=== PATIENT | male | born 1985 | race Caucasian/White ===

== ENCOUNTER 2017-07-30 | Day surgery (SDC) | END 2017-07-30 14:15 | disposition home or self-care (01) ==

== ENCOUNTER → 2017-07-30 | Outpatient (CLI) | END | disposition home or self-care (01) ==

== ENCOUNTER 2017-08-06 13:19 | Day surgery (SDC) | payer OTHER ==
[~2017-08-06] VITALS: Ht 190.5 cm; Wt 123.6 kg
[~2017-08-06 13:19] MED LIST: 100CC Multi-Ad1 EACH; ALBU90OI; ALBU90OI INH; ALBU90OI6; ALBU90OI6 INH; ALBU90OI61; ALBU90OI61 INH; AZIT250 PO; CETI5 PO; CHLO500 PO; CLON1 PO; CODBUTACEC PO; CYCL10; CYCL10 PO; DEXL60CA3; DIPATR PO; DOXY100 PO; DULO60 PO; ESOM20 PO; Excedrin Extra1 EACH; FIORINAL-COD 31 EACH; FLUT.05NI; FLUT110OIA IH; FLUT44OIA; FLUT44OIA IH; Flovent 220 Ora12 GM; GABA600 PO; GUAI600T33 PO; IBUP800 PO; LIDO5TO TOP; LORA10ER; MELO7.5 PO; METPRE4DP PO; MONT10T; NAPR500; NAPR500 PO; NAPR550 PO; NORT25 PO; Naprosyn500 MG PO; Nexium40 MG; OMEP10ER PO; OMEP20ER PO; ONDA4; PRED10 PO; PROM25 PO; Prilosec Otc20 MG PO; RANI150; RANI150 PO; RXTRAM50 PO; Robaxin500 MG PO; SUCR1 PO; SULTRIDS PO; TRAM50 PO; TRAZ100 PO; TRIAOI; Ultram50 MG PO; ZYRTEC10 M2; Zofran4 MG PO
[2017-08-06] MEDS ORDERED: HEARTBURN RELI150 M1 PO (14:07)
== END 2017-08-06 17:29 | disposition home or self-care (01) ==
LOC: ORSCSDS 13:19
PROVIDERS: Orthopaedic Surgery
PROC: 0SQC4ZZ Repair Right Knee Joint, Percutaneous Endoscopic Approach (ICD-10-PCS; principal; 2017-08-06 15:00)
DX: S83.281A Other tear of lateral meniscus, current injury, right knee, initial encounter (principal); J45.909 Unspecified asthma, uncomplicated; I10 Essential (primary) hypertension; E66.01 Morbid (severe) obesity due to excess calories; Z68.34 Body mass index [BMI] 34.0-34.9, adult; Z79.899 Other long term (current) drug therapy
CPT/HCPCS: C1713; J0171; J2250; J2795; J3010; J3370; J7120

== ENCOUNTER → 2017-09-02 | Outpatient (CLI) | payer OTHER ==
[~2017-09-02] MED LIST changes: +ANTIBIOTIC; +HEARTBURN RELI150 M1 PO; +Omeprazole20 M1
[2017-09-02 13:25] LABS: BASOPHILS ABSOLUTE AUTO 0.03 K/mm3 (0.00-0.23); BASOPHILS PERCENT AUTO 1 % (0-2); EOSINOPHILS ABSOLUTE AUTO 0.13 K/mm3 (0.00-0.68); EOSINOPHILS PERCENT AUTO 2 % (0-6); Hematocrit 39.9 % (37.0-53.0); IMMATURE GRAN ABSOLUTE AUTO 0.02 K/mm3 (0.00-0.10); IMMATURE GRAN PERCENT AUTO 0 % (0-1); LYMPHOCYTES PERCENT AUTO 26 % (21-46); MONOCYTES ABSOLUTE AUTO 0.48 K/mm3 (0.16-1.47); MONOCYTES PERCENT AUTO 8 % (4-13); Mean Corpuscular HGB 27.7 pg (26.0-34.0); Mean Corpuscular HGB Conc 32.6 g/dL (31.5-36.5); Mean Corpuscular Volume 85 fL (80-100); Mean Platelet Volume 9.6 fL (9.1-12.4); NEUTROPHILS ABSOLUTE AUTO 3.96 K/mm3 (1.96-9.15); NEUTROPHILS PERCENT AUTO 64 % (41-73); Platelet Count 222 K/mm3 (150-400); RDW Coefficient Variation 13.4 % (11.7-14.2); RDW Standard Deviation 41.5 fL (35.1-46.3); White Blood Cell Count 6.22 K/mm3 (4.00-11.30)
[2017-09-02 13:40] LABS: Anion Gap 8 mmol/L (6-16); Blood Urea Nitrogen 7 mg/dL (8-24); Bun/Creatinine Ratio 7.6 (12.0-20.0); CO2, Blood 28 mmol/L (21-32); Calcium, Blood 9.2 mg/dL (8.5-10.1); Chloride, Blood 107 mmol/L (98-108); Creatinine, Blood 0.92 mg/dL (0.60-1.20); Glomerular Filtration Rate >60 (60-); Glucose, Blood 113 mg/dL (70-99); Potassium, Blood 3.7 mmol/L (3.5-5.5); Sodium, Blood 143 mmol/L (136-145); Troponin I <0.017 ng/mL (0.000-0.040)
== END ==
LOC: LAB EV 13:21 → LAB SHORT 13:21
PROVIDERS: Family Medicine
DX: R07.89 Other chest pain (principal)
CPT/HCPCS: 80048; 84484; 85025; 85379

== ENCOUNTER 2018-02-27 18:50 | Emergency (ER) | payer OTHER ==
[~2018-02-27] VITALS: Ht 190.5 cm; Wt 117.9 kg
[~2018-02-27 18:50] MED LIST changes: +Brethine2.5 MG
[2018-02-27 20:28] LABS: BASOPHILS ABSOLUTE AUTO 0.04 K/mm3 (0.00-0.23); BASOPHILS PERCENT AUTO 1 % (0-2); EOSINOPHILS ABSOLUTE AUTO 0.08 K/mm3 (0.00-0.68); EOSINOPHILS PERCENT AUTO 1 % (0-6); Hematocrit 45.3 % (37.0-53.0); Hemoglobin 14.7 g/dL (13.5-17.5); IMMATURE GRAN ABSOLUTE AUTO 0.02 K/mm3 (0.00-0.10); IMMATURE GRAN PERCENT AUTO 0 % (0-1); LYMPHOCYTES ABSOLUTE AUTO 1.21 K/mm3 (0.84-5.20); LYMPHOCYTES PERCENT AUTO 16 % (21-46); MONOCYTES ABSOLUTE AUTO 0.33 K/mm3 (0.16-1.47); MONOCYTES PERCENT AUTO 4 % (4-13); Mean Corpuscular HGB 28.5 pg (26.0-34.0); Mean Corpuscular HGB Conc 32.5 g/dL (31.5-36.5); Mean Corpuscular Volume 88 fL (80-100); Mean Platelet Volume 9.9 fL (9.1-12.4); NEUTROPHILS ABSOLUTE AUTO 5.75 K/mm3 (1.96-9.15); NEUTROPHILS PERCENT AUTO 77 % (41-73); Platelet Count 233 K/mm3 (150-400); RDW Coefficient Variation 12.9 % (11.7-14.2); RDW Standard Deviation 41.5 fL (35.1-46.3); Red Blood Cell Count 5.15 M/mm3 (4.30-5.90); White Blood Cell Count 7.43 K/mm3 (4.00-11.30)
[2018-02-27 20:51] LABS: Alanine Aminotransfer (ALT/SGP 25 U/L (12-78); Albumin, Blood 3.9 g/dL (3.4-5.0); Albumin/Globulin Ratio 1.1 (0.8-1.8); Alk Phos 90 U/L (50-136); Anion Gap 5 mmol/L (6-16); Aspartate Aminotrans (AST/SGOT 22 U/L (12-37); Bilirubin, Total 0.6 mg/dL (0.1-1.0); Blood Urea Nitrogen 13 mg/dL (8-24); Bun/Creatinine Ratio 15.3 (12.0-20.0); CO2, Blood 30 mmol/L (21-32); Calcium, Blood 9.5 mg/dL (8.5-10.1); Chloride, Blood 106 mmol/L (98-108); Creatinine, Blood 0.85 mg/dL (0.60-1.20); Globulin, Blood 3.6 g/dL (2.2-4.0); Glomerular Filtration Rate >60 (60-); Glucose, Blood 108 mg/dL (70-99); Potassium, Blood 3.8 mmol/L (3.5-5.5); Sodium, Blood 141 mmol/L (136-145); Total Protein, Blood 7.5 g/dL (6.4-8.2); Troponin I <0.015 ng/mL (0.000-0.040)
[2018-02-27] MEDS ORDERED: XARELTO (22:03)
== END 2018-02-27 22:04 | disposition home or self-care (01) ==
LOC: ER 18:50
PROVIDERS: Physician Assistant
DX: R07.89 Other chest pain (principal); G43.909 Migraine, unspecified, not intractable, without status migrainosus; Z79.899 Other long term (current) drug therapy; J45.909 Unspecified asthma, uncomplicated; K21.9 Gastro-esophageal reflux disease without esophagitis
CPT/HCPCS: 36415; 71046; 71260; 80053; 84484; 85025; 93005; 93010; 96361; 96374; 96375; 99284-25; J1100; J1200; J2765; J7030; Q9967

== ENCOUNTER → 2018-04-18 | Outpatient (CLI) | payer OTHER ==
[~2018-04-18] MED LIST changes: +XARELTO
[2018-04-18 17:07] LABS: BASOPHILS ABSOLUTE AUTO 0.02 K/mm3 (0.00-0.23); BASOPHILS PERCENT AUTO 0 % (0-2); EOSINOPHILS ABSOLUTE AUTO 0.05 K/mm3 (0.00-0.68); EOSINOPHILS PERCENT AUTO 1 % (0-6); Hemoglobin 15.9 g/dL (13.5-17.5); IMMATURE GRAN ABSOLUTE AUTO 0.03 K/mm3 (0.00-0.10); IMMATURE GRAN PERCENT AUTO 0 % (0-1); LYMPHOCYTES ABSOLUTE AUTO 0.76 K/mm3 (0.84-5.20); LYMPHOCYTES PERCENT AUTO 9 % (21-46); MONOCYTES ABSOLUTE AUTO 0.33 K/mm3 (0.16-1.47); MONOCYTES PERCENT AUTO 4 % (4-13); Mean Corpuscular HGB 28.6 pg (26.0-34.0); Mean Corpuscular HGB Conc 33.8 g/dL (31.5-36.5); Mean Corpuscular Volume 85 fL (80-100); NEUTROPHILS ABSOLUTE AUTO 7.75 K/mm3 (1.96-9.15); NEUTROPHILS PERCENT AUTO 87 % (41-73); Platelet Count 235 K/mm3 (150-400); RDW Standard Deviation 39.8 fL (35.1-46.3); Red Blood Cell Count 5.55 M/mm3 (4.30-5.90); White Blood Cell Count 8.94 K/mm3 (4.00-11.30)
[2018-04-18 17:19] LABS: Alanine Aminotransfer (ALT/SGP 21 U/L (12-78); Albumin, Blood 4.1 g/dL (3.4-5.0); Albumin/Globulin Ratio 1.1 (0.8-1.8); Alk Phos 97 U/L (40-126); Anion Gap 11 mmol/L (6-16); Aspartate Aminotrans (AST/SGOT 21 U/L (12-37); Bilirubin, Total 1.2 mg/dL (0.1-1.0); Blood Urea Nitrogen 13 mg/dL (8-24); Bun/Creatinine Ratio 11.5 (12.0-20.0); CO2, Blood 26 mmol/L (21-32); Calcium, Blood 9.4 mg/dL (8.5-10.1); Chloride, Blood 104 mmol/L (98-108); Creatinine, Blood 1.13 mg/dL (0.60-1.20); Globulin, Blood 3.7 g/dL (2.2-4.0); Glomerular Filtration Rate >60 (60-); Glucose, Blood 151 mg/dL (70-99); Potassium, Blood 3.7 mmol/L (3.5-5.5); Sodium, Blood 141 mmol/L (136-145); Total Protein, Blood 7.8 g/dL (6.4-8.2)
[2018-04-18 18:05] LABS: Bilirubin, Direct 0.2 mg/dL (0.0-0.3)
[2018-04-18 18:06] LABS: Troponin I <0.017 ng/mL (0.000-0.040)
== END ==
LOC: LAB SHORT 17:03 → LAB EV 17:03
PROVIDERS: Physician Assistant
DX: R11.2 Nausea with vomiting, unspecified (principal); R07.9 Chest pain, unspecified
CPT/HCPCS: 80053; 82248; 83690; 84484; 85025; 85379

== ENCOUNTER 2018-06-27 20:40 | Emergency (ER) | payer OTHER ==
[~2018-06-27] VITALS: Ht 195.6 cm; Wt 127.0 kg
[2018-06-27] MEDS ORDERED: Naprosyn500 MG PO (22:26)
== END 2018-06-27 22:35 | disposition home or self-care (01) ==
LOC: ER 20:40
DX: S92.252A Displaced fracture of navicular [scaphoid] of left foot, initial encounter for closed fracture (principal); X58.XXXA Exposure to other specified factors, initial encounter; Z88.0 Allergy status to penicillin; Z88.8 Allergy status to other drugs, medicaments and biological substances; Z79.899 Other long term (current) drug therapy; J45.909 Unspecified asthma, uncomplicated; G43.909 Migraine, unspecified, not intractable, without status migrainosus
CPT/HCPCS: 73630; 99283-25

== ENCOUNTER → 2018-08-06 | Outpatient (CLI) | payer OTHER ==
[2018-08-06 08:57] LABS: BASOPHILS ABSOLUTE AUTO 0.03 K/mm3 (0.00-0.23); BASOPHILS PERCENT AUTO 0 % (0-2); EOSINOPHILS ABSOLUTE AUTO 0.12 K/mm3 (0.00-0.68); EOSINOPHILS PERCENT AUTO 1 % (0-6); Hematocrit 38.2 % (37.0-53.0); Hemoglobin 12.9 g/dL (13.5-17.5); IMMATURE GRAN ABSOLUTE AUTO 0.02 K/mm3 (0.00-0.10); IMMATURE GRAN PERCENT AUTO 0 % (0-1); LYMPHOCYTES ABSOLUTE AUTO 1.17 K/mm3 (0.84-5.20); LYMPHOCYTES PERCENT AUTO 14 % (21-46); MONOCYTES ABSOLUTE AUTO 0.69 K/mm3 (0.16-1.47); MONOCYTES PERCENT AUTO 8 % (4-13); Mean Corpuscular HGB 29.3 pg (26.0-34.0); Mean Corpuscular HGB Conc 33.8 g/dL (31.5-36.5); Mean Corpuscular Volume 87 fL (80-100); Mean Platelet Volume 10.1 fL (9.1-12.4); NEUTROPHILS ABSOLUTE AUTO 6.42 K/mm3 (1.96-9.15); NEUTROPHILS PERCENT AUTO 76 % (41-73); Platelet Count 191 K/mm3 (150-400); RDW Coefficient Variation 13.3 % (11.7-14.2); RDW Standard Deviation 41.7 fL (35.1-46.3); White Blood Cell Count 8.45 K/mm3 (4.00-11.30)
[2018-08-06 09:35] LABS: Bun/Creatinine Ratio 9.3 (12.0-20.0); Calcium, Blood 8.8 mg/dL (8.5-10.1); Creatinine, Blood 1.51 mg/dL (0.60-1.20); Potassium, Blood 4.1 mmol/L (3.5-5.5)
== END | disposition home or self-care (01) ==
LOC: LAB SHORT 08:50 → LAB EV 08:50
PROVIDERS: Family Medicine
DX: R31.9 Hematuria, unspecified (principal)
CPT/HCPCS: 80048; 85025

== ENCOUNTER 2018-10-23 20:43 | Inpatient (IN) | payer OTHER ==
[~2018-10-23] VITALS: Ht 190.5 cm; Wt 117.9 kg
[2018-10-24 00:23] LABS: BASOPHILS ABSOLUTE AUTO 0.07 K/mm3 (0.00-0.23); BASOPHILS PERCENT AUTO 1 % (0-2); EOSINOPHILS ABSOLUTE AUTO 0.15 K/mm3 (0.00-0.68); EOSINOPHILS PERCENT AUTO 1 % (0-6); Hematocrit 41.3 % (37.0-53.0); Hemoglobin 13.4 g/dL (13.5-17.5); IMMATURE GRAN ABSOLUTE AUTO 0.05 K/mm3 (0.00-0.10); IMMATURE GRAN PERCENT AUTO 0 % (0-1); LYMPHOCYTES ABSOLUTE AUTO 2.09 K/mm3 (0.84-5.20); LYMPHOCYTES PERCENT AUTO 17 % (21-46); MONOCYTES ABSOLUTE AUTO 0.84 K/mm3 (0.16-1.47); MONOCYTES PERCENT AUTO 7 % (4-13); Mean Corpuscular HGB Conc 32.4 g/dL (31.5-36.5); Mean Corpuscular Volume 89 fL (80-100); Mean Platelet Volume 10.1 fL (9.1-12.4); NEUTROPHILS ABSOLUTE AUTO 9.26 K/mm3 (1.96-9.15); NEUTROPHILS PERCENT AUTO 74 % (41-73); Platelet Count 214 K/mm3 (150-400); RDW Standard Deviation 42.5 fL (35.1-46.3); Red Blood Cell Count 4.62 M/mm3 (4.30-5.90); White Blood Cell Count 12.46 K/mm3 (4.00-11.30)
[2018-10-24 00:42] LABS: Alanine Aminotransfer (ALT/SGP 17 U/L (12-78); Albumin, Blood 3.3 g/dL (3.4-5.0); Alk Phos 77 U/L (50-136); Anion Gap 7 mmol/L (6-16); Aspartate Aminotrans (AST/SGOT 12 U/L (12-37); Bilirubin, Total 1.1 mg/dL (0.1-1.0); Blood Urea Nitrogen 6 mg/dL (8-24); Bun/Creatinine Ratio 7.4 (12.0-20.0); CO2, Blood 30 mmol/L (21-32); Calcium, Blood 8.7 mg/dL (8.5-10.1); Chloride, Blood 105 mmol/L (98-108); Creatinine, Blood 0.81 mg/dL (0.60-1.20); Globulin, Blood 3.4 g/dL (2.2-4.0); Glomerular Filtration Rate >60 (60-); Glucose, Blood 96 mg/dL (70-99); Potassium, Blood 3.5 mmol/L (3.5-5.5); Sodium, Blood 142 mmol/L (136-145); Total Protein, Blood 6.7 g/dL (6.4-8.2)
--- NOTE | 2018-10-24 06:41 | NUR ---
SHIFT SUMMARY PT NEW ADMIT THIS SHIFT. AAOX4. NPO. PT DENIES DISCOMFORT SINCE ADMISSION TO FLOOR, MILD NAUSEA, NO EMESIS. PT ORIENTED TO ROOM + CALL LIGHT USE. 18g IV TO RIGHT AC. SURGICAL PACKET ON FRONT OF CHART. PT RESTING WELL SINCE ADMISSION TO FLOOR. CALL LIGHT IN REACH AT THIS TIME.
--- NOTE | 2018-10-24 07:05 | NUR ---
recvd report from previous RN PHOEBE, PT APPEARS TO BE SLEEPING, BED IN LOWEST POSITION, BED RAILS X 2, CALL LIGHT WITHIN REACH
--- NOTE | 2018-10-24 10:26 | NUR ---
dr bryant rounding on pt
--- NOTE | 2018-10-24 12:40 | NUR ---
PT TRANSFERRED TO [facility]IA [facility]
--- NOTE | 2018-10-24 12:45 | NUR ---
History, Chart, Medications and Allergies reviewed before start of procedure.Lungs clear T/O to Auscultation. Patient confirms NPO status and agrees with scheduled surgery.
--- NOTE | 2018-10-24 15:20 | NUR ---
I NOTIFIED DR OTTO OF BP, STATES OK TO TRANSFER PT AFTER 300 ML BOLUS OF LR . PT DENIES ANY COMPLAINT DROWSY DOES WAKE EASILY TO VERBAL STIMULI
--- NOTE | 2018-10-24 17:01 | NUR ---
SHIFT SUMMARY: VSS, POST OP VS CONTINUING AND STABLE. PT A/0 X 4, PLEASANT/COOPERATIVE. PT STATES TO SLIGHT NAUSEA, DENIES NEED FOR MEDICATION AT THIS TIME. PT TOLERATING SIPS OF CLEARS AT THIS TIME
--- NOTE | 2018-10-25 07:34 | NUR ---
SUMMARY PT S/P LAP APPY TONIGHT. PT WITH C/O INTERMITTENT DIZZYNESS WHEN OOB ALTHOUGH HE REPORTS THIS BASELINE. PT HAD ONLY VOIDED 100 ML SO FAR DURING SHIFT.WITH BLADDER SCAN [address] KIM AND DISCUSSED I/O WELL VS. ORDER IV BOLUS AND INCREASE IN IV RATE TO 150 ML/HR AFTER BOLUS.PT C/O SOB TONIGHT WITH HX ASTHMA I CALLED DR KIM AND ORDERS RECEIVED.PT USES INHALERS AT HOME. NEBS WERE GIVEN. INITIALLY MED REC APPEARED PT TAKES TERBUTALINE SO WAS ORDERED PER HOME.HOWEVER,PT REPORTED HE DOES NOT TAKE THIS MED AND WAS CONFIRMED PER A CALL TO HIS MOTHER. SO MED WAS DCD. MOTHER WILL BRING IN PT MED BOTTLES TODAY FOR CORRECTION.PT HAS ONLY VOIDED TOTAL OF 150 ML THIS SHIFT.ON 2 L N/C WITH SATS 92 % PER CONT PULSE OX. BP 91/[address] KIM AND ADVISED OF VS,URINARY OUTPUT VS INTAKE INCLUDING BOLUS, REQUESTED LABS.ORDERS RECEIVED FOR LABS INCLUDING LACTIC ACID AND ADDITIONAL IV BOLUS. CURRENT BLADDER SCAN 78.
[2018-10-25 08:15] LABS: BASOPHILS ABSOLUTE AUTO 0.02 K/mm3 (0.00-0.23); BASOPHILS PERCENT AUTO 0 % (0-2); EOSINOPHILS PERCENT AUTO 0 % (0-6); Hematocrit 39.5 % (37.0-53.0); Hemoglobin 13.1 g/dL (13.5-17.5); IMMATURE GRAN ABSOLUTE AUTO 0.06 K/mm3 (0.00-0.10); IMMATURE GRAN PERCENT AUTO 0 % (0-1); LYMPHOCYTES PERCENT AUTO 7 % (21-46); MONOCYTES PERCENT AUTO 6 % (4-13); Mean Corpuscular HGB 28.9 pg (26.0-34.0); Mean Corpuscular HGB Conc 33.2 g/dL (31.5-36.5); Mean Corpuscular Volume 87 fL (80-100); Mean Platelet Volume 10.1 fL (9.1-12.4); NEUTROPHILS ABSOLUTE AUTO 13.51 K/mm3 (1.96-9.15); NEUTROPHILS PERCENT AUTO 87 % (41-73); Platelet Count 225 K/mm3 (150-400); RDW Coefficient Variation 13.1 % (11.7-14.2); RDW Standard Deviation 41.6 fL (35.1-46.3); Red Blood Cell Count 4.53 M/mm3 (4.30-5.90); White Blood Cell Count 15.59 K/mm3 (4.00-11.30)
[2018-10-25 08:29] LABS: Alanine Aminotransfer (ALT/SGP 14 U/L (12-78); Albumin, Blood 2.9 g/dL (3.4-5.0); Albumin/Globulin Ratio 0.8 (0.8-1.8); Alk Phos 66 U/L (50-136); Anion Gap 9 mmol/L (6-16); Aspartate Aminotrans (AST/SGOT 4 U/L (12-37); Bilirubin, Total 1.7 mg/dL (0.1-1.0); Blood Urea Nitrogen 14 mg/dL (8-24); CO2, Blood 24 mmol/L (21-32); Calcium, Blood 8.7 mg/dL (8.5-10.1); Chloride, Blood 105 mmol/L (98-108); Creatinine, Blood 1.27 mg/dL (0.60-1.20); Globulin, Blood 3.6 g/dL (2.2-4.0); Glomerular Filtration Rate >60 (60-); Glucose, Blood 137 mg/dL (70-99); Potassium, Blood 3.8 mmol/L (3.5-5.5); Sodium, Blood 138 mmol/L (136-145); Total Protein, Blood 6.5 g/dL (6.4-8.2)
[2018-10-25] MEDS ORDERED: TOPI25 PO (09:29)
[2018-10-25] MEDS ORDERED: Flonase 0.05% N16 GM INH (09:32)
--- NOTE | 2018-10-25 13:25 | NUR ---
STRAIGHT CATH STRAIGHT CATH USED TO OBTAIN URINE SAMPLE. 200ML OF URINE EMPTIED OUT OF BLADDER WITH STRAIGHT CATH. PT REPORTED SOME RELIEF OF PRESSURE/DISCOMFORT DESPITE NOT FEELING THE URGE TO VOID. PT REPORTED A HISTORY OF URINARY RETENTION. VSS. WILL CONTINUE TO MONITOR.
[2018-10-25 13:47] LABS: Source, Urine Clean Catch
[2018-10-25 13:57] LABS: Bilirubin, Urine Neg (Neg); Blood, Urine 1+ (Neg); Glucose Qualitative, Urine Neg (Neg); Ketones, Urine 1+ (Neg); Leukocyte Esterase, Urine Neg (Neg); Nitrite, Urine Neg (Neg); Protein, Urine 2+ (Neg); Specific Gravity, Urine 1.025 (1.003-1.022); Urobilinogen, Urine NORM (Normal)
[2018-10-25 14:27] LABS: Appearance, Urine Clear (Clear); Color, Urine Yellow (P-Yellow)
[2018-10-25 14:30] LABS: Red Blood Cells, Urine Not Seen /hpf (0-2); White Blood Cells, Urine 0-2 /hpf (0-5)
[2018-10-25 14:31] LABS: Amorphous Light (0-Heavy); Bacteria Mod /hpf; Mucus Light (0-Heavy); Squamous Epithelial Cells Rare /hpf (Few)
[2018-10-25 14:38] LABS: Granular Casts 0-2 /lpf (0)
--- NOTE | 2018-10-25 15:21 | NUR ---
PT HAS COMPLAINED OF NAUSEA AND VOMITED X1 THIS AFTERNOON. PT HAS HAD INCREASED PAIN AND DISCOMFORT IN THE LOWER ABD AREA, WHICH HE DESCRIBES CRAMPING PAIN. PT HAS BEEN ENCOURAGED TO AMBULATE IN ORDER TO RELIEVE GAS PAINS. PT HAS HAD MINIMAL OUTPUT, ENCOURAGING FLUIDS, IV FLUIDS IN PLACE.
--- NOTE | 2018-10-25 18:38 | NUR ---
SHIFT SUMMARY PAIN HAS BEEN MANAGED WITH PO AND IV PAIN MEDICATION THIS SHIFT. PT HAS HAD SOME NAUSEA THIS AFTERNOON WHICH HAS BEEN MANAGED WITH ZOFRAN AND REGLAN. PT DENIES PASSING FLATUS. HE AMBULATED X1, HE DECLINED FURTHER AMBULATION WHEN OFFERED. ACID REFLUX HAS BEEN A COMPLAINT THIS SHIFT, PEPCID AND TUMS GIVEN. VSS. WILL MONITOR UNTIL REPORT TO ONCOMING RN.
--- NOTE | 2018-10-25 20:00 | NUR ---
PHONE CALL TO DR KIM REGARDING PTS I/O,BP 146/99 CONTINUED REQUIRING 02,ALSO DISCUSSED POSSIBLE NEED FOR FOLLOW UP LABS IN AM, ? DISCUSSED HX DVT/PE WITH PAST SURGERY.ADVISED PT SLOW OOB BUT HAS GOTTEN OOB AND HAS VOID 175ML FOR US OF RECENT.RECEIVED ORDERS FOR AM LABS.DR NOT WANTING PT ON THINNERS AT THIS TIME.
[2018-10-26 04:25] LABS: BASOPHILS ABSOLUTE AUTO 0.02 K/mm3 (0.00-0.23); BASOPHILS PERCENT AUTO 0 % (0-2); EOSINOPHILS ABSOLUTE AUTO 0.01 K/mm3 (0.00-0.68); EOSINOPHILS PERCENT AUTO 0 % (0-6); Hematocrit 41.1 % (37.0-53.0); Hemoglobin 13.2 g/dL (13.5-17.5); IMMATURE GRAN ABSOLUTE AUTO 0.08 K/mm3 (0.00-0.10); IMMATURE GRAN PERCENT AUTO 1 % (0-1); LYMPHOCYTES ABSOLUTE AUTO 0.91 K/mm3 (0.84-5.20); LYMPHOCYTES PERCENT AUTO 7 % (21-46); MONOCYTES ABSOLUTE AUTO 0.92 K/mm3 (0.16-1.47); MONOCYTES PERCENT AUTO 7 % (4-13); Mean Corpuscular HGB 28.8 pg (26.0-34.0); Mean Corpuscular HGB Conc 32.1 g/dL (31.5-36.5); Mean Platelet Volume 10.4 fL (9.1-12.4); NEUTROPHILS ABSOLUTE AUTO 11.67 K/mm3 (1.96-9.15); NEUTROPHILS PERCENT AUTO 86 % (41-73); Platelet Count 218 K/mm3 (150-400); RDW Coefficient Variation 13.1 % (11.7-14.2); RDW Standard Deviation 43.3 fL (35.1-46.3); Red Blood Cell Count 4.58 M/mm3 (4.30-5.90); White Blood Cell Count 13.61 K/mm3 (4.00-11.30)
[2018-10-26 04:27] LABS: Mean Corpuscular Volume 90 fL (80-100)
[2018-10-26 04:42] LABS: Anion Gap 8 mmol/L (6-16); Blood Urea Nitrogen 12 mg/dL (8-24); Bun/Creatinine Ratio 13.6 (12.0-20.0); CO2, Blood 25 mmol/L (21-32); Calcium, Blood 8.8 mg/dL (8.5-10.1); Chloride, Blood 108 mmol/L (98-108); Creatinine, Blood 0.89 mg/dL (0.60-1.20); Glomerular Filtration Rate >60 (60-); Glucose, Blood 109 mg/dL (70-99); Potassium, Blood 3.9 mmol/L (3.5-5.5); Sodium, Blood 141 mmol/L (136-145)
--- NOTE | 2018-10-26 06:53 | NUR ---
SUMMARY PT UP IN HALLS [facility] WITH WALKER AND ASSIST. REPORTS PASSED FLATUS X1. GAVE REGLAN AND TUMS X1 FOR REFLUX.MED THIS AM WITH ZOFRAN FOR C/O NAUSEA. ADVISED PT TO TAKE SLOW PO FLUIDS/ SIPS WITH MINIMAL BTS AND NAUSEA. VOIDING HAS IMPROVED. CREATININE WNL THIS AM.
--- NOTE | 2018-10-26 19:42 | NUR ---
SUMMARY: PT IS POD3 LAP APPY. NO ACUTE CHANGE TODAY. SURGICAL SITE WNL. MINIMAL PAIN AND NAUSEA, DECREASED APPITITE. HAD SOME SIPS OF WATER AND JELLO TODAY, OTHERWISE DID NOT EAT. ABD IS DISTENDED AND FEW TO NO BOWEL TONES. MOBILIZATION ENCOURAGE, PT HARD TO MOTIVATE. URINE OUTPUT WNL. NO SAFETY CONCERNS AT THIS TIME. REPORT GIVEN TO THOMPSON GLASER
--- NOTE | 2018-10-27 05:58 | NUR ---
POD 4 S/P LAP APPY. PT VSS T/O NIGHT. SATS >90% ON RA WHILE AWAKE, DROP TO 87% WHEN SLEEPING, O2 TITRATED TO 1LNC WHILE SLEEPING. PT USING I/S AT BEDSIDE. STERI STRIPS CDI. PAIN MGD W/TORADOL W/REP RELIEF. PT JEFF SMALL AMT CLEAR LIQ PO, REP MILD NAUSEA EARLY IN SHIFT, NO EMESIS. BT HYPO, PT DOES REP PASSING SM AMT FLATUS. URINE AUDI. PT AMB W/FWW+SBA, PT NEEDING ENCOURAGEMETN TO AMBULATE. IVF AND ABX CONT PER ORDERS. PT USING CALL LIGHT FOR ASSISTANCE, WILL CONT TO MONITOR UNTIL REP GIVEN TO ONCOMING RN.
--- NOTE | 2018-10-27 16:18 | NUR ---
SHIFT SUMMARY PT POD 4 LAP APPY. PT HAS HAD C/O ABDOMINAL FEELING BLOATED T/O THIS SHIFT W/COMPLAINT OF CONSTIPATION. PT GIVEN MILK OF MAG AND DUCOLAX-PT REPORTS 2 SMALL FIRM BM. UP TO CHAIR AND AMBULATE IN HALLWAY, PASSING FLATUS. DID HAVE EMESIS ONCE 4OO ML-MEDICATED WITH 4MG ZOFRAN.
--- NOTE | 2018-10-28 05:00 | NUR ---
PATIENT HAS HAD SEVERAL AM BOUGHTS OF NAUSEA AND VOMITING. WE HAVE KEPT HIM NPO SINCE 2AM. HE HAS BEEN TURNING HIMSELF TO POSITIONS OF COMFORT.
[2018-10-28 06:44] LABS: BASOPHILS ABSOLUTE AUTO 0.03 K/mm3 (0.00-0.23); BASOPHILS PERCENT AUTO 0 % (0-2); EOSINOPHILS ABSOLUTE AUTO 0.08 K/mm3 (0.00-0.68); EOSINOPHILS PERCENT AUTO 1 % (0-6); Hematocrit 40.5 % (37.0-53.0); Hemoglobin 13.3 g/dL (13.5-17.5); IMMATURE GRAN ABSOLUTE AUTO 0.05 K/mm3 (0.00-0.10); IMMATURE GRAN PERCENT AUTO 1 % (0-1); LYMPHOCYTES ABSOLUTE AUTO 0.84 K/mm3 (0.84-5.20); LYMPHOCYTES PERCENT AUTO 10 % (21-46); MONOCYTES ABSOLUTE AUTO 0.77 K/mm3 (0.16-1.47); MONOCYTES PERCENT AUTO 9 % (4-13); Mean Corpuscular HGB 28.2 pg (26.0-34.0); Mean Corpuscular HGB Conc 32.8 g/dL (31.5-36.5); Mean Platelet Volume 10.2 fL (9.1-12.4); NEUTROPHILS ABSOLUTE AUTO 6.47 K/mm3 (1.96-9.15); NEUTROPHILS PERCENT AUTO 79 % (41-73); Platelet Count 282 K/mm3 (150-400); RDW Coefficient Variation 12.6 % (11.7-14.2); RDW Standard Deviation 39.8 fL (35.1-46.3); Red Blood Cell Count 4.72 M/mm3 (4.30-5.90); White Blood Cell Count 8.24 K/mm3 (4.00-11.30)
[2018-10-28 06:51] LABS: Mean Corpuscular Volume 86 fL (80-100)
--- NOTE | 2018-10-28 19:09 | NUR ---
SHIFT SUMMARY PT HAD A TOTAL OF 1100ML GREEN/BILE EMESIS THIS SHIFT. MEDICATED PER EMAR. AFTER ADMINISTRATION OF 12.5MG PHENERGAN PT HAS NOT HAD ANY EMESIS, NAUSEATED ONCE. UP AMBULATING IN HALLWAY. PER DR COX IF PT BEGINS TO HAVE LARGE AMOUNTS OF EMESIS OUT AGAIN MAY PLACE NG TUBE. DENIES FLATUS. PT NPO, IVF RUNNING WHEN PT IS NOT AMBULATING.
[2018-10-29 04:35] LABS: BASOPHILS ABSOLUTE AUTO 0.03 K/mm3 (0.00-0.23); BASOPHILS PERCENT AUTO 1 % (0-2); EOSINOPHILS ABSOLUTE AUTO 0.17 K/mm3 (0.00-0.68); EOSINOPHILS PERCENT AUTO 3 % (0-6); Hematocrit 41.2 % (37.0-53.0); Hemoglobin 13.5 g/dL (13.5-17.5); IMMATURE GRAN ABSOLUTE AUTO 0.05 K/mm3 (0.00-0.10); IMMATURE GRAN PERCENT AUTO 1 % (0-1); LYMPHOCYTES ABSOLUTE AUTO 0.79 K/mm3 (0.84-5.20); LYMPHOCYTES PERCENT AUTO 13 % (21-46); MONOCYTES ABSOLUTE AUTO 0.66 K/mm3 (0.16-1.47); MONOCYTES PERCENT AUTO 11 % (4-13); Mean Corpuscular HGB 28.7 pg (26.0-34.0); Mean Corpuscular HGB Conc 32.8 g/dL (31.5-36.5); Mean Corpuscular Volume 88 fL (80-100); Mean Platelet Volume 10.1 fL (9.1-12.4); NEUTROPHILS ABSOLUTE AUTO 4.37 K/mm3 (1.96-9.15); NEUTROPHILS PERCENT AUTO 72 % (41-73); Platelet Count 284 K/mm3 (150-400); RDW Coefficient Variation 12.8 % (11.7-14.2); RDW Standard Deviation 41.3 fL (35.1-46.3); White Blood Cell Count 6.07 K/mm3 (4.00-11.30)
[2018-10-29 04:55] LABS: Anion Gap 9 mmol/L (6-16); Blood Urea Nitrogen 14 mg/dL (8-24); CO2, Blood 29 mmol/L (21-32); Calcium, Blood 8.8 mg/dL (8.5-10.1); Chloride, Blood 102 mmol/L (98-108); Creatinine, Blood 0.87 mg/dL (0.60-1.20); Glomerular Filtration Rate >60 (60-); Glucose, Blood 107 mg/dL (70-99); Potassium, Blood 3.2 mmol/L (3.5-5.5); Sodium, Blood 140 mmol/L (136-145)
--- NOTE | 2018-10-29 05:49 | NUR ---
SHIFT SUMMARY: PT POD #6 FOR LAP APPY. C/O FEELING NAUSEATED T/O SHIFT DESPITE BEING MEDICATED PER EMAR. HYPOACTIVE BOWEL TONES IN ALL QUADRANTS. PT REPORTS PASSING A SMALL AMOUNT OF FLATUS. PT ENCOURAGED TO AMBULATE. AMBULATED BARLOW ONCE. INDEPENDENT IN ROOM AND VOIDING. 2800ML OF EMESIS OUTPUT. NG INSERTION AT APPROX 0320 PER ORDERS. PT TOLERATED WELL. GIVEN FENTANYL 25MCG FOR PAIN ONCE.
--- NOTE | 2018-10-29 18:24 | NUR ---
SUMMARY PT HAD ONE EPISODE OF EMESIS THIS SHIFT. MEDICATED FOR NAUSEA TWICE DURING SHIFT. NG PRODUCING LARGE AMOUNT GREEN LIQUID. PT AMBULTED TWICE IN HALLS W/PRESIDENT PRACTICING UROLOGIST. SAT UP IN CHAIR MOST OF SHIFT. HAD TWO LOOSE BMS AND PASSED FLATUS. IV FLUIDS INFUSING W/O DIFFICULTY. USES CALL LIGHT APPROPRIATELY.
--- NOTE | 2018-10-29 19:52 | NUR ---
PTUP IN RECLINER CHAIR. USING I.S. TAKING PO ICE CHIPS. NG DRAINING.
--- NOTE | 2018-10-30 06:42 | NUR ---
SUMMARY MEDICATED X1 FOR NAUSEA THIS SHIFT. OUTPUT CONT GREEN AND VOLUME 1050 ML TONIGHT.DISCUSSED WITH PT IMPORTANCE OF MEASURING URINARY OUTPUT PARTICULARLY GIVEN THE LARGE VOLUME OUT PER NG AND PT REPORTED TO HAVE HAD DIARRHEA X3 DISCUSSED RISK OF DEHAYDRATION GIVEN HE REQUIRED IV FLUIDS TO BE BOLUSED POSTOP WITH MINMAL URINE OUTPUT AT THAT TIME.NEW POWER GLIDE OBTAINED PER Carlyle CHOPRA RN DUE TO LOSS OF SITE AND DIFFICULT START.PT TOLERATING AMBULATION.
--- NOTE | 2018-10-30 17:01 | NUR ---
SUMMARY: PT IS POD6 LAP APPY. NO ACUTE CHANGE TODAY. PT IS A/O, VSS. AT ABOUT 1230 DR. COX SAW PT AND CLAMPED NGT, ORDER TO KEEP CLAMPED FOR 3 HOURS. AFTER 3 HOURS RE-ATTACH TO SUCTION AND ASSESS OUTPUT. AT 1530 NGT TO INTERMITTANT SUCTION AND MINIMAL OUTPUT, DR. COX MADE AWARE AND ORDER FOR NGT REMOVAL AND ADVANCE DIET TO CLEAR LIQ. REMOVED AT 1700, PT TOLERATED WELL. WILL HAVE CLEAR LIQ DIET FOR DINNER. PT HAS DENIED PAIN AND NAUSEA TODAY. CONTINUING TO ENCOURAGE MOBILITY. NO BM AND IS VOIDING WNL. WILL CTM AND REPORT TO THOMPSON RN.
--- NOTE | 2018-10-30 17:07 | NUR ---
DR. COX MADE AWARE OF PT CBG OF 79 AT 0945, NO NEW ORDERS
--- NOTE | 2018-10-31 07:13 | NUR ---
SUMMARY AMBULATING INDEPENDANTLY TONIGHT. NEEDS FREQ REMINDING TO USE URINAL FOR MEASURING. MED WITH ZOFRAN X1 FOR SLIGHT NAUSEA.
--- NOTE | 2018-10-31 07:40 | NUR ---
PT REPORTS OFF AND ON NAUSEA NO EMESIS PASSING FLATUS ALSO STATED THAT HE IS HAVING SOME LOOSE STOOL
--- NOTE | 2018-10-31 08:44 | NUR ---
meds given will hold stool meds pt eating cl diet
--- NOTE | 2018-10-31 09:41 | NUR ---
dr moore by to see pt ok to adv diet pt wants to stay with cl for lunch then adv to fl for dinner
--- NOTE | 2018-10-31 12:23 | NUR ---
PT REPORTING PAIN TO HIS R BIG TOE REDNESS NOTED UNDER THE NAIL ASKED PT IF HE STUBBED IT WHILE WALKING PT UNSURE WILL CONT TO MONITOR WILL NOTIFY DR WHEN HE MAKES ROUNDS
--- NOTE | 2018-10-31 12:53 | NUR ---
PT [facility] IN [facility]
--- NOTE | 2018-10-31 14:10 | NUR ---
pt sitting up in chair req pain med 1 tab po oxy given with popsicle
--- NOTE | 2018-10-31 17:18 | NUR ---
CARE ASSUMED OF PT AT APPROXIMATELY 1600. PT ALERT, ORIENTED, AND PAIN MANAGED. WILL MONITOR UNTIL REPORT TO NOC RN.
--- NOTE | 2018-10-31 18:06 | NUR ---
SHIFT SUMMARY PAIN HAS BEEN MANAGED WITH PO PAIN MEDICATION. NO CHANGES TO REPORT SINCE CARE ASSUMED OF PT. WILL MONITOR UNTIL REPORT TO ONCOMING RN.
--- NOTE | 2018-11-01 05:46 | NUR ---
SHIFT SUMMARY PT POD#8 PERF APPI. AAOX4. DISCOMFORT CONTROLLED WITH 5MG ROXICODONE X1 THIS SHIFT, NO NAUSEA/EMESIS. ABD INCISIONS WITH STERI STRIPS C/D/I. PT UP AMBULATING IN HALLS YESTARDAY EVENING, TOLERATED WELL. RESTED WELL T/O NIGHT. PT REPORTING LARGE AMOUNTS FLATUS THIS SHIFT, NO BM. STOOL SOFTNERS GIVEN PER ORDERS + WILL CONTINUE TO ASSESS FOR BOWEL CARE NEEDS. SIPS WATER THIS SHIFT + IVF PER ORDERS. PT RESTING AT THIS TIME, CALL AYUSH BUNN.
--- NOTE | 2018-11-01 09:15 | NUR ---
dr ocasio rounding on pt
--- NOTE | 2018-11-01 15:54 | NUR ---
PT PROVIDED WITH DISCHARGE INSTRUCTIONS, PRINTED EDUCATION MATERIALS, PERIPHERAL EXTENDED DWELL CATHETER REMOVED WNL AND DOCUMENTED. PT STATES UNDERSTANDING OF INSTRUCTIONS. PT STATES HE WOULD LIKE TO WALK TO THE CARE. PT ESCORTED BY FAMILY MEMBER, BOTH CARRYING BELONGINGS.
== END 2018-11-01 16:01 | disposition home or self-care (01) | DRG 339 ==
LOC: ER 20:43 → SURS 20:44 → ER 10-24 04:13 → SURS 10-24 04:13
PROVIDERS: Emergency Medicine; Surgery; ADMIT Surgery
PROC: 0D9670Z Drainage of Stomach with Drainage Device, Via Natural or Artificial Opening (ICD-10-PCS; 2018-10-24)
PROC: 0DTJ4ZZ Resection of Appendix, Percutaneous Endoscopic Approach (ICD-10-PCS; principal; 2018-10-24 11:30)
DX: K35.32 Acute appendicitis with perforation, localized peritonitis, and gangrene, without abscess (principal); K56.7 Ileus, unspecified; K38.1 Appendicular concretions; J45.909 Unspecified asthma, uncomplicated; K21.9 Gastro-esophageal reflux disease without esophagitis; Z86.718 Personal history of other venous thrombosis and embolism; Z86.711 Personal history of pulmonary embolism
CPT/HCPCS: 36415; 74176; 80048; 80053; 81001; 82947; 83605; 83690; 83735; 85025; 87086; 88304; 94640; 94760; 94762; 96361; 96365; 96366; 96367; 96375; 96376; 99285-25; G0378; G0480; J0744; J1100; J1650; J1885; J1956; J2250; J2405; J2550; J2704; J2710; J2765; J3010; J7030; J7120

== ENCOUNTER → 2018-11-12 | Outpatient (CLI) | payer OTHER ==
[~2018-11-12] MED LIST changes: +Flonase 0.05% N16 GM INH; +TOPI25 PO
[2018-11-12 16:59] LABS: BASOPHILS ABSOLUTE AUTO 0.06 K/mm3 (0.00-0.23); BASOPHILS PERCENT AUTO 1 % (0-2); EOSINOPHILS ABSOLUTE AUTO 0.11 K/mm3 (0.00-0.68); EOSINOPHILS PERCENT AUTO 2 % (0-6); Hematocrit 43.2 % (37.0-53.0); Hemoglobin 13.8 g/dL (13.5-17.5); IMMATURE GRAN ABSOLUTE AUTO 0.04 K/mm3 (0.00-0.10); IMMATURE GRAN PERCENT AUTO 1 % (0-1); LYMPHOCYTES ABSOLUTE AUTO 1.76 K/mm3 (0.84-5.20); LYMPHOCYTES PERCENT AUTO 30 % (21-46); MONOCYTES ABSOLUTE AUTO 0.36 K/mm3 (0.16-1.47); MONOCYTES PERCENT AUTO 6 % (4-13); Mean Corpuscular HGB 27.7 pg (26.0-34.0); Mean Corpuscular HGB Conc 31.9 g/dL (31.5-36.5); Mean Corpuscular Volume 87 fL (80-100); Mean Platelet Volume 9.6 fL (9.1-12.4); NEUTROPHILS ABSOLUTE AUTO 3.45 K/mm3 (1.96-9.15); NEUTROPHILS PERCENT AUTO 60 % (41-73); Platelet Count 449 K/mm3 (150-400); RDW Coefficient Variation 13.2 % (11.7-14.2); RDW Standard Deviation 41.3 fL (35.1-46.3); Red Blood Cell Count 4.98 M/mm3 (4.30-5.90); White Blood Cell Count 5.78 K/mm3 (4.00-11.30)
== END | disposition home or self-care (01) ==
LOC: LAB EV 16:53 → LAB SHORT 16:53
PROVIDERS: Physician Assistant
DX: R10.9 Unspecified abdominal pain (principal)
CPT/HCPCS: 85025

== ENCOUNTER → 2019-02-18 | Outpatient (CLI) | payer OTHER ==
[2019-02-18 16:58] LABS: BASOPHILS ABSOLUTE AUTO 0.06 K/mm3 (0.00-0.23); BASOPHILS PERCENT AUTO 1 % (0-2); EOSINOPHILS ABSOLUTE AUTO 0.14 K/mm3 (0.00-0.68); EOSINOPHILS PERCENT AUTO 2 % (0-6); Hematocrit 45.4 % (37.0-53.0); Hemoglobin 15.2 g/dL (13.5-17.5); IMMATURE GRAN ABSOLUTE AUTO 0.03 K/mm3 (0.00-0.10); IMMATURE GRAN PERCENT AUTO 0 % (0-1); LYMPHOCYTES ABSOLUTE AUTO 1.83 K/mm3 (0.84-5.20); LYMPHOCYTES PERCENT AUTO 24 % (21-46); MONOCYTES ABSOLUTE AUTO 0.45 K/mm3 (0.16-1.47); MONOCYTES PERCENT AUTO 6 % (4-13); Mean Corpuscular HGB 28.7 pg (26.0-34.0); Mean Corpuscular HGB Conc 33.5 g/dL (31.5-36.5); Mean Corpuscular Volume 86 fL (80-100); NEUTROPHILS ABSOLUTE AUTO 5.15 K/mm3 (1.96-9.15); NEUTROPHILS PERCENT AUTO 67 % (41-73); Platelet Count 300 K/mm3 (150-400); RDW Coefficient Variation 13.5 % (11.7-14.2); RDW Standard Deviation 41.9 fL (35.1-46.3); Red Blood Cell Count 5.29 M/mm3 (4.30-5.90); White Blood Cell Count 7.66 K/mm3 (4.00-11.30)
[2019-02-18 17:16] LABS: Anion Gap 6 mmol/L (6-16); Blood Urea Nitrogen 16 mg/dL (8-24); CO2, Blood 28 mmol/L (21-32); Calcium, Blood 9.2 mg/dL (8.5-10.1); Chloride, Blood 107 mmol/L (98-108); Creatinine, Blood 0.94 mg/dL (0.60-1.20); Glomerular Filtration Rate >60 (60-); Glucose, Blood 94 mg/dL (70-99); Potassium, Blood 4.1 mmol/L (3.5-5.5); Sodium, Blood 141 mmol/L (136-145)
== END | disposition home or self-care (01) ==
LOC: LAB EV 16:50 → LAB SHORT 16:50
PROVIDERS: Physician Assistant Surgical
DX: R06.00 Dyspnea, unspecified (principal); R53.83 Other fatigue
CPT/HCPCS: 80048; 84443; 85025; 85379

== ENCOUNTER 2019-11-12 11:32 | Emergency (ER) | payer OTHER ==
[~2019-11-12] VITALS: Ht 190.5 cm; Wt 127.0 kg
[~2019-11-12 11:32] MED LIST changes: +AZIT250; +DEXT30SU PO; +DICLOFENAC SOD100 G1 TP; +PRED20 PO
[2019-11-12 13:18] LABS: BASOPHILS ABSOLUTE AUTO 0.05 K/mm3 (0.00-0.23); BASOPHILS PERCENT AUTO 1 % (0-2); EOSINOPHILS ABSOLUTE AUTO 0.09 K/mm3 (0.00-0.68); EOSINOPHILS PERCENT AUTO 2 % (0-6); Hematocrit 45.9 % (37.0-53.0); Hemoglobin 14.8 g/dL (13.5-17.5); IMMATURE GRAN ABSOLUTE AUTO 0.02 K/mm3 (0.00-0.10); IMMATURE GRAN PERCENT AUTO 0 % (0-1); LYMPHOCYTES ABSOLUTE AUTO 1.41 K/mm3 (0.84-5.20); LYMPHOCYTES PERCENT AUTO 31 % (21-46); MONOCYTES ABSOLUTE AUTO 0.26 K/mm3 (0.16-1.47); MONOCYTES PERCENT AUTO 6 % (4-13); Mean Corpuscular HGB 28.7 pg (26.0-34.0); Mean Corpuscular HGB Conc 32.2 g/dL (31.5-36.5); Mean Corpuscular Volume 89 fL (80-100); Mean Platelet Volume 9.9 fL (9.1-12.4); NEUTROPHILS ABSOLUTE AUTO 2.79 K/mm3 (1.96-9.15); NEUTROPHILS PERCENT AUTO 61 % (41-73); Platelet Count 243 K/mm3 (150-400); RDW Coefficient Variation 13.1 % (11.7-14.2); RDW Standard Deviation 43.3 fL (35.1-46.3); Red Blood Cell Count 5.16 M/mm3 (4.30-5.90); White Blood Cell Count 4.62 K/mm3 (4.00-11.30)
[2019-11-12 13:46] LABS: Alanine Aminotransfer (ALT/SGP 18 U/L (12-78); Albumin, Blood 3.7 g/dL (3.4-5.0); Albumin/Globulin Ratio 1.1 (0.8-1.8); Alk Phos 78 U/L (50-136); Anion Gap 4 mmol/L (6-16); Aspartate Aminotrans (AST/SGOT 14 U/L (12-37); Blood Urea Nitrogen 10 mg/dL (8-24); Bun/Creatinine Ratio 10.6 (12.0-20.0); CO2, Blood 29 mmol/L (21-32); Calcium, Blood 9.1 mg/dL (8.5-10.1); Chloride, Blood 109 mmol/L (98-108); Creatinine, Blood 0.94 mg/dL (0.60-1.20); Globulin, Blood 3.4 g/dL (2.2-4.0); Glomerular Filtration Rate >60 (60-); Glucose, Blood 99 mg/dL (70-99); Potassium, Blood 3.7 mmol/L (3.5-5.5); Sodium, Blood 142 mmol/L (136-145); Total Protein, Blood 7.1 g/dL (6.4-8.2)
[2019-11-12] MEDS ORDERED: VALACYCLOVIR1000 M1 PO (14:29)
[2019-11-12] MEDS ORDERED: Prednisone20 MG PO (14:29)
== END 2019-11-12 14:38 | disposition home or self-care (01) ==
LOC: ER 11:32
PROVIDERS: Emergency Medicine
DX: G51.0 Bell's palsy (principal); J45.909 Unspecified asthma, uncomplicated; Z86.718 Personal history of other venous thrombosis and embolism; Z88.0 Allergy status to penicillin; Z88.1 Allergy status to other antibiotic agents; Z79.899 Other long term (current) drug therapy
CPT/HCPCS: 36415; 70496; 70498; 80053; 85025; 99284-25; Q9967

== ENCOUNTER 2020-05-14 16:41 | Emergency (ER) | payer OTHER ==
[~2020-05-14] VITALS: Ht 190.5 cm; Wt 128.0 kg
[~2020-05-14 16:41] MED LIST changes: +Prednisone20 MG PO; +VALACYCLOVIR1000 M1 PO
[2020-05-14 19:55] LABS: BASOPHILS ABSOLUTE AUTO 0.04 K/mm3 (0.00-0.23); BASOPHILS PERCENT AUTO 1 % (0-2); EOSINOPHILS ABSOLUTE AUTO 0.04 K/mm3 (0.00-0.68); EOSINOPHILS PERCENT AUTO 1 % (0-6); IMMATURE GRAN ABSOLUTE AUTO 0.03 K/mm3 (0.00-0.10); IMMATURE GRAN PERCENT AUTO 0 % (0-1); LYMPHOCYTES ABSOLUTE AUTO 0.77 K/mm3 (0.84-5.20); LYMPHOCYTES PERCENT AUTO 9 % (21-46); MONOCYTES ABSOLUTE AUTO 0.45 K/mm3 (0.16-1.47); MONOCYTES PERCENT AUTO 5 % (4-13); Mean Corpuscular HGB 28.3 pg (26.0-34.0); Mean Corpuscular HGB Conc 32.6 g/dL (31.5-36.5); Mean Corpuscular Volume 87 fL (80-100); Mean Platelet Volume 10.2 fL (9.1-12.4); NEUTROPHILS ABSOLUTE AUTO 7.23 K/mm3 (1.96-9.15); NEUTROPHILS PERCENT AUTO 84 % (41-73); Platelet Count 215 K/mm3 (150-400); RDW Coefficient Variation 13.2 % (11.7-14.2); RDW Standard Deviation 41.4 fL (35.1-46.3); White Blood Cell Count 8.56 K/mm3 (4.00-11.30)
[2020-05-14 20:22] LABS: Alanine Aminotransfer (ALT/SGP 22 U/L (12-78); Albumin, Blood 3.7 g/dL (3.4-5.0); Alk Phos 87 U/L (50-136); Anion Gap 7 mmol/L (6-16); Aspartate Aminotrans (AST/SGOT 22 U/L (12-37); Bilirubin, Total 0.8 mg/dL (0.1-1.0); Blood Urea Nitrogen 7 mg/dL (8-24); Bun/Creatinine Ratio 8.7 (12.0-20.0); CO2, Blood 24 mmol/L (21-32); Calcium, Blood 9.1 mg/dL (8.5-10.1); Chloride, Blood 109 mmol/L (98-108); Creatinine, Blood 0.81 mg/dL (0.60-1.20); Globulin, Blood 3.6 g/dL (2.2-4.0); Glomerular Filtration Rate >60 (60-); Glucose, Blood 105 mg/dL (70-99); Potassium, Blood 3.8 mmol/L (3.5-5.5); Sodium, Blood 140 mmol/L (136-145); Total Protein, Blood 7.3 g/dL (6.4-8.2); Troponin I <0.015 ng/mL (0.000-0.040)
== END 2020-05-14 20:59 | disposition home or self-care (01) ==
LOC: ER 16:41
PROVIDERS: Physician Assistant
DX: J06.9 Acute upper respiratory infection, unspecified (principal); R07.9 Chest pain, unspecified; J45.909 Unspecified asthma, uncomplicated; K21.9 Gastro-esophageal reflux disease without esophagitis; R53.83 Other fatigue; Z88.0 Allergy status to penicillin; Z88.1 Allergy status to other antibiotic agents; Z79.52 Long term (current) use of systemic steroids; Z79.899 Other long term (current) drug therapy
CPT/HCPCS: 36415; 71045; 71046; 80053; 83690; 84443; 84484; 85025; 85379; 93005; 93010; 96374; 99284-25; J2405

== ENCOUNTER → 2021-03-13 | Outpatient (CLI) | payer OTHER ==
[2021-03-15 07:09] LABS: CHLAMYDIA TRACHOMATIS, NAA Negative (Negative)
[2021-03-16 23:11] LABS: CHLAMYDIA TRACHOMATIS, NAA Negative (Negative); NEISSERIA GONORRHOEAE, NAA Negative (Negative)
== END ==
LOC: LAB SHORT 16:15
PROVIDERS: Physician Assistant
DX: Z72.51 High risk heterosexual behavior (principal)
CPT/HCPCS: 87491; 87591

== ENCOUNTER 2022-06-01 22:19 | Emergency (ER) | payer OTHER ==
[~2022-06-01] VITALS: Ht 190.5 cm; Wt 122.5 kg
[2022-06-01 22:53] LABS: BASOPHILS ABSOLUTE AUTO 0.07 K/mm3 (0.00-0.23); BASOPHILS PERCENT AUTO 1 % (0-2); EOSINOPHILS ABSOLUTE AUTO 0.19 K/mm3 (0.00-0.68); EOSINOPHILS PERCENT AUTO 3 % (0-6); Hematocrit 44.3 % (37.0-53.0); Hemoglobin 14.8 g/dL (13.5-17.5); IMMATURE GRAN ABSOLUTE AUTO 0.01 K/mm3 (0.00-0.10); IMMATURE GRAN PERCENT AUTO 0 % (0-1); LYMPHOCYTES PERCENT AUTO 34 % (21-46); MONOCYTES ABSOLUTE AUTO 0.42 K/mm3 (0.16-1.47); MONOCYTES PERCENT AUTO 7 % (4-13); Mean Corpuscular HGB 28.7 pg (26.0-34.0); Mean Corpuscular HGB Conc 33.4 g/dL (31.5-36.5); Mean Corpuscular Volume 86 fL (80-100); Mean Platelet Volume 10.1 fL (9.1-12.4); NEUTROPHILS ABSOLUTE AUTO 3.31 K/mm3 (1.96-9.15); NEUTROPHILS PERCENT AUTO 54 % (41-73); Platelet Count 292 K/mm3 (150-400); RDW Coefficient Variation 12.5 % (11.7-14.2); RDW Standard Deviation 39.5 fL (35.1-46.3); Red Blood Cell Count 5.15 M/mm3 (4.30-5.90)
[2022-06-01 23:12] LABS: Albumin, Blood 3.7 g/dL (3.4-5.0); Bilirubin, Total 0.4 mg/dL (0.1-1.0); Bun/Creatinine Ratio 15.6 (12.0-20.0); Calcium, Blood 9.5 mg/dL (8.5-10.1); Creatinine, Blood 0.9 mg/dL (0.60-1.20); Globulin, Blood 3.6 g/dL (2.2-4.0); Potassium, Blood 3.8 mmol/L (3.5-5.5); Total Protein, Blood 7.3 g/dL (6.4-8.2)
[2022-06-02] MEDS ORDERED: DESCOVY 200-251 EAC1 PO (00:07)
== END 2022-06-02 01:39 | disposition home or self-care (01) ==
LOC: ER 22:19
PROVIDERS: Emergency Medicine
DX: R07.89 Other chest pain (principal); J45.909 Unspecified asthma, uncomplicated; K21.9 Gastro-esophageal reflux disease without esophagitis; Z88.0 Allergy status to penicillin; Z88.1 Allergy status to other antibiotic agents; Z79.899 Other long term (current) drug therapy
CPT/HCPCS: 36415; 71046; 80053; 84484; 85025; 85379; 93005; 93010; 96374; 96375; 99284-25; A9270; J1885; J2405

== ENCOUNTER → 2024-09-12 | Outpatient (CLI) | payer OTHER ==
[~2024-09-12] MED LIST changes: +DESCOVY 200-251 EAC1 PO
[2024-09-12 12:32] LABS: BASOPHILS ABSOLUTE AUTO 0.05 K/mm3 (0.00-0.23); BASOPHILS PERCENT AUTO 1 % (0-2); EOSINOPHILS ABSOLUTE AUTO 0.19 K/mm3 (0.00-0.68); EOSINOPHILS PERCENT AUTO 4 % (0-6); Hematocrit 46.0 % (37.0-53.0); Hemoglobin 14.9 g/dL (13.5-17.5); IMMATURE GRAN ABSOLUTE AUTO 0.02 K/mm3 (0.00-0.10); IMMATURE GRAN PERCENT AUTO 0 % (0-1); LYMPHOCYTES ABSOLUTE AUTO 1.47 K/mm3 (0.84-5.20); LYMPHOCYTES PERCENT AUTO 30 % (21-46); MONOCYTES ABSOLUTE AUTO 0.35 K/mm3 (0.16-1.47); MONOCYTES PERCENT AUTO 7 % (4-13); Mean Corpuscular HGB Conc 32.4 g/dL (31.5-36.5); Mean Corpuscular Volume 86 fL (80-100); NEUTROPHILS ABSOLUTE AUTO 2.85 K/mm3 (1.96-9.15); NEUTROPHILS PERCENT AUTO 58 % (41-73); NRBC ABSOLUTE 0.00 K/mm3 (0.00-0.02); NRBC Auto 0.0 /100 WBC (0.0-0.2); Platelet Count 240 K/mm3 (150-400); RDW Coefficient Variation 13.3 % (11.7-14.2); RDW Standard Deviation 41.3 fL (35.1-46.3)
[2024-09-12 12:43] LABS: Alanine Aminotransfer (ALT/SGP 33.0 U/L (12-78); Albumin, Blood 3.7 g/dL (3.4-5.0); Albumin/Globulin Ratio 1.1 (0.8-1.8); Anion Gap 9.0 mmol/L (3-11); Aspartate Aminotrans (AST/SGOT 20.0 U/L (12-37); Bilirubin, Total 0.9 mg/dL (0.1-1.0); Blood Urea Nitrogen 13.0 mg/dL (8-24); CO2, Blood 28.0 mmol/L (21-32); Calcium, Blood 9.2 mg/dL (8.5-10.1); Chloride, Blood 106.0 mmol/L (98-108); Creatinine, Blood 1.05 mg/dL (0.60-1.20); Globulin, Blood 3.4 g/dL (2.2-4.0); Glucose, Blood 102.0 mg/dL (70-99); Potassium, Blood 4.2 mmol/L (3.5-5.5); Sodium, Blood 139.0 mmol/L (136-145); Total Protein, Blood 7.1 g/dL (6.4-8.2)
== END | disposition home or self-care (01) ==
LOC: LAB 12:28 → LAB SHORT 12:28
PROVIDERS: Physician Assistant
DX: R10.9 Unspecified abdominal pain (principal)
CPT/HCPCS: 80053; 83690; 85025